=== PATIENT | male | born 2000 | race Caucasian/White ===

== ENCOUNTER 2022-02-08 01:15 | Emergency (ER) | payer SELFPAY ==
[2022-02-08] MEDS ORDERED: Silver Sulfadiazine 50 GM TUBE ONE (02:13)
[2022-02-08] MEDS ORDERED: Ketorolac Tromethamine 30 MG/ML VIAL ONE (02:33)
== END 2022-02-08 03:05 | disposition home or self-care (01) ==
LOC: ERS 01:15
DX: T23.231A Burn of second degree of multiple right fingers (nail), not including thumb, initial encounter (principal); T31.0 Burns involving less than 10% of body surface; X08.8XXA Exposure to other specified smoke, fire and flames, initial encounter
CPT/HCPCS: 96372; 99283; J1885